=== PATIENT | female | born 1980 | race African-American/Black ===

== ENCOUNTER 2024-09-19 18:14 | Emergency (ER) | payer MEDICAID, OTHER ==
[~2024-09-19] VITALS: Ht 165.1 cm; Wt 74.8 kg
[2024-09-19 18:58] VITALS: BP 131/82; TEMP 98; O2SAT 98
[2024-09-19] MEDS ORDERED: IBUP-1955 PO (19:23)
== END 2024-09-19 20:05 | disposition home or self-care (01) ==
LOC: ER 18:14
DX: J06.9 Acute upper respiratory infection, unspecified (principal); R53.1 Weakness; Z20.822 Contact with and (suspected) exposure to COVID-19